=== PATIENT | female | born 1985 ===

== ENCOUNTER 2017-01-30 14:02 | Inpatient (IN) | payer OTHER, MEDICAID ==
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
[2017-01-30 14:31] VITALS: BMI 28.3
[2017-01-30 16:16] LABS: ADD MANUAL DIFF? NO
[2017-01-30 16:29] LABS: ALB/GLOB RATIO 1.3 (1.1-1.8); ALKALINE PHOSPHATASE 56 U/L (38-133); ALT/SGPT 26 U/L (7-56); AST/SGOT 37 U/L (15-39); BILIRUBIN,TOTAL 2.6 mg/dL (0.2-1.3); BLOOD UREA NITROGEN 13 mg/dL (7-21); CALCIUM 10.1 mg/dL (8.4-10.5); CARBON DIOXIDE 16 mmol/L (21-33); CHLORIDE 107 mmol/L (98-107); GFR AFRICAN-AMERICAN > 60; GLUCOSE,RANDOM 84 mg/dL (70-110); POTASSIUM 3.3 mmol/L (3.6-5.0); SODIUM 141 mmol/L (132-148); TOTAL PROTEIN 8.3 g/dL (5.8-8.3)
[2017-01-30 16:34] LABS: BASO # 0.09 K/mm3 (0.0-2.0); BASO % 0.7 % (0.0-3.0); EOS # 0.1 (0.0-0.7); EOS % 0.4 % (1.5-5.0); GRAN % 71.9 % (50.0-68.0); LYMPH # 2.4 (1.2-3.4); LYMPH % 19.2 % (22.0-35.0); MEAN CELL VOLUME 88.8 fL (80.0-105.0); MEAN CORPUSCULAR HEMOGLOBIN 32.3 pg (25.0-35.0); MEAN CORPUSCULAR HGB CONC 36.4 g/dl (31.0-37.0); MEAN PLATELET VOLUME 8.4 fl (7.0-11.0); MONO % 7.8 % (1.0-6.0); PLATELET COUNT 338 10^3/uL (120.0-450.0); RED CELL DISTRIBUTION WIDTH 13.1 % (11.5-14.5); WHITE BLOOD COUNT 12.5 10^3/ul (4.5-11.0)
[2017-01-30] MEDS ORDERED: Potassium Chloride 20 mEq ER Tab PO STA (16:41)
[2017-01-30 17:51] VITALS: O2SAT 98
[2017-01-30] MEDS ORDERED: Magnesium Hydroxide Susp 30 ml UD PO PRN (20:31)
[2017-01-30] MEDS ORDERED: Alum-Mag Hydrox-Simethicone Susp (30 mL) PO PRN (20:31)
[2017-01-30] MEDS: Divalproex 500 mg DR(BID formulation) PO SCH (21:28)
[2017-01-31] MEDS: Divalproex 500 mg DR(BID formulation) PO SCH ×2 (09:48→21:23)
[2017-01-31 10:04] LABS: HEMATOCRIT 39.6 % (36.0-48.0); MEAN CELL VOLUME 90.6 fL (80.0-105.0); MEAN CORPUSCULAR HEMOGLOBIN 31.8 pg (25.0-35.0); MEAN CORPUSCULAR HGB CONC 35.1 g/dl (31.0-37.0); MEAN PLATELET VOLUME 8.9 fl (7.0-11.0); RED CELL DISTRIBUTION WIDTH 13.4 % (11.5-14.5); WHITE BLOOD COUNT 9.4 10^3/ul (4.5-11.0)
[2017-01-31 10:15] LABS: BLOOD UREA NITROGEN 17 mg/dL (7-21); CALCIUM 9.8 mg/dL (8.4-10.5); CARBON DIOXIDE 22 mmol/L (21-33); CHLORIDE 103 mmol/L (98-107); GFR AFRICAN-AMERICAN > 60; GLUCOSE,RANDOM 65 mg/dL (70-110); POTASSIUM 3.9 mmol/L (3.6-5.0); SODIUM 138 mmol/L (132-148)
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
[2017-01-31 15:06] LABS: URINE BILIRUBIN NEGATIVE (NEGATIVE); URINE BLOOD TRACE-LYSED (NEGATIVE); URINE GLUCOSE (UA) NEGATIVE (NEGATIVE); URINE KETONE 15 mg/dL (NEGATIVE); URINE LEUKOCYTE ESTERASE NEGATIVE Leu/uL (NEGATIVE); URINE PROTEIN NEGATIVE mg/dL (<30 mg/dL); URINE UROBILINOGEN 0.2 E.U./dL (<1 E.U./dL)
[2017-01-31 15:13] LABS: URINE APPEARANCE CLEAR (CLEAR); URINE COLOR YELLOW (YELLOW)
[2017-01-31 15:15] LABS: URINE BACTERIA FEW (NEG); URINE EPITHELIAL CELLS MANY /hpf (0-5); URINE RBC 0 - 2 /hpf (0-2); URINE WBC 0 - 2 /hpf (0-6)
--- NOTE | 2017-01-31 16:02 | CARD ---
APPROVED REPORT EKG Measurement Heart [id number] <Conclusion> Normal sinus rhythm Normal ECG
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
[2017-02-01] MEDS: Divalproex 500 mg DR(BID formulation) PO SCH (09:36)
[2017-02-01] MEDS ORDERED: Valproic Acid 250 mg/5 ml Oral Syrup (60 ml) PO SCH (10:00)
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
[2017-02-01 15:42] LABS: URINE BILIRUBIN NEGATIVE (NEGATIVE); URINE BLOOD TRACE-LYSED (NEGATIVE); URINE GLUCOSE (UA) NEGATIVE (NEGATIVE); URINE KETONE 15 mg/dL (NEGATIVE); URINE LEUKOCYTE ESTERASE NEGATIVE Leu/uL (NEGATIVE); URINE PROTEIN NEGATIVE mg/dL (<30 mg/dL); URINE UROBILINOGEN 0.2 E.U./dL (<1 E.U./dL)
[2017-02-01 15:46] LABS: URINE APPEARANCE CLEAR (CLEAR); URINE COLOR YELLOW (YELLOW)
[2017-02-01 16:12] LABS: URINE BACTERIA FEW (NEG); URINE EPITHELIAL CELLS MANY /hpf (0-5)
[2017-02-01] MEDS: Divalproex 500 mg ER (ONCE DAILY formulation) PO SCH (21:29)
[2017-02-02 10:05] VITALS: RESP 20
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
[2017-02-02] MEDS: Divalproex 500 mg ER (ONCE DAILY formulation) PO SCH (22:05)
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
[2017-02-03] MEDS: Divalproex 500 mg ER (ONCE DAILY formulation) PO SCH (21:23)
--- NOTE | 2017-02-04 15:33 | CP.PCM.PN ---
<Earle Osorio - Last Filed: 02/04/17 15:45> Subjective - Date & Time of Evaluation Date of Evaluation: 02/04/17 Time of Evaluation: 15:28 - Subjective Subjective: Pt seen and examined at bedside. Pt states she has been experiencing pain in her left thumb and her right heel for the past week. Pt denies trauma to both areas. She states her thumb cyst has become larger over the past several days and has not had any erythema or drainage. Pt has been taking tylenol for pain and it has not helped. Pt states heel pain started 1 week ago and is made worse by placing pressure on it or walking. Pt reports not stepping on anything or having any puncture type wounds. Denies CP, SOB, N/V/D, fever, chills. Objective - Vital Signs/Intake and Output Vital Signs (last 24 hours): Temp Pulse Resp BP Pulse Ox 97.7 F 70 20 128/65 98 02/03/17 06:00 02/03/17 16:00 02/03/17 06:00 02/03/17 16:00 01/30/17 16:03 - Medications Medications: Current Medications Al Hydrox/Mg Hydrox/Simethicone (Maalox Plus 30 Ml) 30 ml PO DAILY PRN PRN Reason: Upset Stomach Benztropine Mesylate (Cogentin) 1 mg PO HS CARMEN Last Admin: 02/03/17 21:23 Dose: 1 mg Divalproex Sodium (Depakote Er(Once Daily)) 1,000 mg PO HS CARMEN PRN Reason: Protocol Last Admin: 02/03/17 21:23 Dose: 1,000 mg Ibuprofen (Motrin Tab) 400 mg PO Q6H PRN PRN Reason: Pain, moderate (4-7) Magnesium Hydroxide (Milk Of Magnesia) 30 ml PO DAILY PRN PRN Reason: Constipation Risperidone (Risperdal Oral Soln) 1 mg PO DAILY CARMEN PRN Reason: Protocol Last Admin: 02/04/17 12:12 Dose: 1 mg Risperidone (Risperdal Oral Soln) 2 mg PO HS CARMEN PRN Reason: Protocol Last Admin: 02/03/17 21:33 Dose: 2 mg Zaleplon (Sonata) 5 mg PO HS PRN PRN Reason: Insomnia Last Admin: 02/03/17 21:23 Dose: 5 mg - Labs Labs: 01/31/17 09:55 01/31/17 09:55 - Constitutional Appears: Well, No Acute Distress - Head Exam Head Exam: ATRAUMATIC, NORMAL INSPECTION, NORMOCEPHALIC - ENT Exam ENT Exam: Mucous Membranes Moist, Normal Exam - Neck Exam Neck Exam: Normal Inspection. absent: Lymphadenopathy - Respiratory Exam Respiratory Exam: Clear to Ausculation Bilateral, NORMAL BREATHING PATTERN. absent: Rhonchi, Wheezes - Cardiovascular Exam Cardiovascular Exam: RRR, +S1 - GI/Abdominal Exam GI & Abdominal Exam: Soft. absent: Tenderness - Extremities Exam Extremities Exam: absent: Calf Tenderness, Pedal Edema Additional comments: Left thumb cyst at bottom of nail. No erythema or drainage. Pain on palpation. Right heel bottom with pain on palpation of callus. - Neurological Exam Neurological Exam: Alert, Awake, Oriented x3 - Psychiatric Exam Psychiatric exam: Normal Affect - Skin Skin Exam: Intact, Warm Assessment and Plan - Assessment and Plan (Free Text) Plan: 31 y/o F with PMH of anxiety, bipolar disorder, depression admitted to psychiatry unit for bipolar disorder and agitation. Pt seen for pain in left thumb and right heel. Will change tylenol to motrin and add hydrocortisone cream for heel. Will reevaluate patient in upcoming days. Continue current plan as per psychiatry. Right heel pain - Hydrocortisone cream added Left thumb cyst - Motrin for pain - Will consider drainage if pain persists for prolonged period of time. Anxiety, bipolar disorder, and depression -Management per psychiatry Seen, reviewed, and discussed with attending. Jo, PGY-1 <Satinder Murdock - Last Filed: 02/04/17 16:24> Objective - Vital Signs/Intake and Output Vital Signs (last 24 hours): Temp Pulse Resp BP Pulse Ox 97.7 F 70 20 128/65 98 02/03/17 06:00 02/03/17 16:00 02/03/17 06:00 02/03/17 16:00 01/30/17 16:03 - Medications Medications: Current Medications Al Hydrox/Mg Hydrox/Simethicone (Maalox Plus 30 Ml) 30 ml PO DAILY PRN PRN Reason: Upset Stomach Benztropine Mesylate (Cogentin) 1 mg PO HS [facility] Last Admin: 02/03/17 21:23 Dose: 1 mg Divalproex Sodium (Depakote Er(Once Daily)) 1,000 mg PO HS CARMEN PRN Reason: Protocol Last Admin: 02/03/17 21:23 Dose: 1,000 mg Ibuprofen (Motrin Tab) 400 mg PO Q6H PRN PRN Reason: Pain, moderate (4-7) Magnesium Hydroxide (Milk Of Magnesia) 30 ml PO DAILY PRN PRN Reason: Constipation Risperidone (Risperdal Oral Soln) 1 mg PO DAILY CARMEN PRN Reason: Protocol Last Admin: 02/04/17 12:12 Dose: 1 mg Risperidone (Risperdal Oral Soln) 2 mg PO HS CARMEN PRN Reason: Protocol Last Admin: 02/03/17 21:33 Dose: 2 mg Zaleplon (Sonata) 5 mg PO HS PRN PRN Reason: Insomnia Last Admin: 02/03/17 21:23 Dose: 5 mg - Labs Labs: 01/31/17 09:55 01/31/17 09:55 Attending/Attestation - Attestation I have personally seen and examined this patient.: Yes I have fully participated in the care of the patient.: Yes I have reviewed all pertinent clinical information, including history, physical exam and plan: Yes Notes (Text): 02/04/17 16:17 MEDICAL FOLLOW UP 31 year old female with past medical history of anxiety, bipolar and depression currently admitted in the psychiatric unit under the care of Dr. Santos. Medical follow up was requested for complaint of left thumb and right heel pain x 1 week. On examination patient has cyst of left thumb below the nail bed. No erythema or discharge. She is able to flex/extend thumb joint without difficulty. Can add anti-inflammatory medication (motrin) for pain. If symptoms worsen or begins to look infected can consider for drainage of cyst. She also has right heel tenderness with dry soles of feet. Will order heel xray to rule out fracture and add hydrocortisone cream. Satinder Murdock MD Hospitalist.
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
[2017-02-04] MEDS: Divalproex 500 mg ER (ONCE DAILY formulation) PO SCH (21:19)
[2017-02-05 07:36] VITALS: BP 105/54; PULSE 57; TEMP 98.2
[2017-02-05] MEDS ORDERED: Hydrocerin(120 gm) TOP SCH (07:45)
--- NOTE | 2017-02-05 10:30 | RAD ---
PROCEDURE: Radiographs of the right calcaneus/hindfoot. HISTORY: Right heel pain COMPARISON: None available. TECHNIQUE: Frontal and lateral radiographs of the calcaneus. FINDINGS: Bone alignment and mineralization are normal. There is no acute fracture or bone destruction. There is no evidence of calcaneal spur. IMPRESSION: Normal examination.
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
== END 2017-02-05 17:25 | disposition home or self-care (01) | DRG 430 ==
LOC: ED 14:02 → ERH 17:08 → PSYC 18:29
PROVIDERS: ADMIT Psychiatry & Neurology Psychiatry; ATTEND Psychiatry & Neurology Psychiatry
PROC: GZ3ZZZZ Medication Management (ICD-10-PCS; principal; 2017-01-30)
DX: F31.64 Bipolar disorder, current episode mixed, severe, with psychotic features (principal); F12.10 Cannabis abuse, uncomplicated; F41.9 Anxiety disorder, unspecified; M79.671 Pain in right foot; L72.8 Other follicular cysts of the skin and subcutaneous tissue; Z87.440 Personal history of urinary (tract) infections

== ENCOUNTER 2017-03-14 11:56 | Emergency (ER) | payer OTHER, MEDICAID ==
[2017-03-14 12:01] VITALS: BMI 27.4
--- NOTE | 2017-03-14 12:01 | ED PDOC ---
Arrival/HPI - General Historian: Patient - General Time Seen by Provider: 03/14/17 11:57 - History of Present Illness Narrative History of Present Illness (Text): 03/14/17 11:58 31 y/o female, psychiatric history including anxiety/bipolar disorder, nkda, bib relatives due to the psychotic episode with anxiety started about 1 hour ago. Pt. was eating the sandwich, started to screaming and anxious, doesn't want to reason, no nausea or vomiting, no fever or chills, no headache or night sweat, no palpitation, no rash, no other medical or psychiatric complaints. Pt. is here grabbing people's shirt, kicking the staffs, doesn't wanna reason. (Jourdan Lopez) Past Medical History - Provider Review Nursing Documentation Reviewed: Yes - Infectious Disease Hx of Infectious Diseases: None - Tetanus Immunization Tetanus Immunization: Unknown - Cardiac Hx Cardiac Disorders: No - Pulmonary Hx Respiratory Disorders: No - Neurological Hx Neurological Disorder: No - HEENT Hx HEENT Disorder: No - Renal Hx Renal Disorder: No - Endocrine/Metabolic Hx Endocrine Disorders: No - Hematological/Oncological Hx Blood Disorders: No - Integumentary Hx Dermatological Disorder: No - Musculoskeletal/Rheumatological Hx Musculoskeletal Disorders: No - Gastrointestinal Hx Gastrointestinal Disorders: Yes (unknown) - Genitourinary/Gynecological Hx Genitourinary Disorders: No - Psychiatric Hx Anxiety: Yes Hx Bipolar Disorder: Yes Hx Depression: Yes Hx Substance Use: Yes (occacionally) - Anesthesia Hx Anesthesia: No Family/Social History - Physician Review Nursing Documentation Reviewed: Yes Family/Social History: Unknown Family HX Smoking Status: Current Some Days Smoker Hx Alcohol Use: No Hx Substance Use: Yes (occacionally) Substance used: MJ, possibly others Allergies/Home Meds Allergies/Adverse Reactions: Allergies No Known Allergies Allergy (Verified 03/14/17 12:16) Review of Systems - Review of Systems Systems not reviewed;Unavailable: Uncooperative Constitutional: absent: Fatigue, Fevers Eyes: absent: Vision Changes ENT: absent: Hearing Changes Respiratory: absent: SOB, Cough Cardiovascular: absent: Chest Pain, Palpitations Gastrointestinal: absent: Abdominal Pain, Nausea, Vomiting Genitourinary Female: absent: Dysuria, Frequency Neurological: absent: Headache, Dizziness, Focal Weakness, Gait Changes Psychiatric: Anxiety. absent: Depression, Suicidal Ideation Physical Exam Pain Distress: None Mental Status: Positive for: Alert and Oriented X 3 - Systems Exam Head: Present: Atraumatic, Normocephalic Pupils: Present: PERRL Extroacular Muscles: Present: EOMI Conjunctiva: Present: Normal Mouth: Present: Moist Mucous Membranes Neck: Present: Normal Range of Motion Respiratory/Chest: Present: Clear to Auscultation, Good Air Exchange. No: Respiratory Distress, Accessory Muscle Use, Wheezes, Retracting, Rhonchi, Tachypneic Cardiovascular: Present: Regular Rate and Rhythm, Normal S1, S2. No: Murmurs Abdomen: Present: Normal Bowel Sounds. No: Tenderness, Distention, Peritoneal Signs Back: Present: Normal Inspection Upper Extremity: Present: Normal Inspection. No: Cyanosis, Edema Lower Extremity: Present: Normal Inspection. No: Edema Neurological: Present: GCS=15, Motor Func Grossly Intact, Gait Normal, Memory Normal Skin: Present: Warm, Dry, Normal Color. No: Rashes Psychiatric: Present: Alert, Oriented x 3, Normal Insight, Normal Concentration , Anxious, Agitated Vital Signs Temp Pulse Resp BP Pulse Ox 03/14/17 16:22 97 H 18 111/76 99 03/14/17 14:38 73 16 108/64 99 03/14/17 12:26 97.5 F L 100 H 18 158/77 H 97 Medical Decision Making - Lab Interpretations I have reviewed the lab results: Yes Interpretation: Abnormal lab values (wbc 12, UDS +cannabinoid) - RAD Interpretation Coding Consultant: Radiologist - EKG Interpretation Interpreted by ED Physician: Yes Type: 12 lead EKG Comparison: Com.w/previous EKG ED Course and Treatment: I was available for consultation during PA evaluation. The chart was reviewed by me, and I agree with disposition. The documented history was done by the physician cutter machine tender. The documented physical exam was done by the physician cutter machine tender. The documented procedures were done by the physician cutter machine tender. ( Kadeem Garibay) 03/14/17 12:01 -ativan 2mg IM -labs/ua/uds -ekg/chest xray -obser 03/14/17 12:04 -Pt. is agitated and violent, attacking and kicking staffs, restraint order added as well. 03/14/17 13:38 -Pt. is calm now, will discontinue the restraint since she is control with ativan. 03/14/17 15:06 -EKG: NSR @ 80 BPM, no ST elevation or depression, no T wave inversion, compared with previous ekg. -Urine hcg negative -Labs are non-significant except wbc 12 which is stress induced as she has no fever/chills. -UA show no UTI -UDS show +cannabinoid -Vitally stable -Pt. is medically clear and stable for the PES evaluation, PES paged and will come to evaluate the patient. 03/14/17 17:34 -Pt. evaluated by the PES Tracy which she spoke to the psychiatrist chasidy which the patient doesn't need admission, suggest to discharge home. -Discharge home with education on follow up with your own pmd and psychiatrist within 2 days, return to the ER for any new or worsening signs or symptoms. ( Jourdan Lopez) - Lab Interpretations Lab Results: 03/14/17 13:30 03/14/17 13:30 Lab Results 03/14/17 14:30: Urine Color Yellow, Urine Appearance Clear, Urine pH 6.0, Ur Specific [place] >= 1.030, Urine Protein 30 H, Urine Glucose (UA) Negative, Urine Ketones 15 H, Urine Blood Trace-intact H, Urine Nitrate Negative, Urine Bilirubin Negative, Urine Urobilinogen 0.2, Ur Leukocyte Esterase Negative, Urine RBC 0 - 2, Urine WBC 0 - 2, Ur Epithelial Cells 0 - 2, Urine Bacteria Small, Urine Opiates Screen Negative, Urine Methadone Screen Negative, Ur Barbiturates Screen Negative, Ur Phencyclidine Scrn Negative, Ur Amphetamines Screen Negative, U Benzodiazepines Scrn Negative, U Oth Cocaine Metabols Negative, U Cannabinoids Screen Positive H 03/14/17 13:30: WBC 12.2 H D, RBC 4.70, Hgb 15.0, Hct 42.3, MCV 90.0, MCH 31.9, MCHC 35.5, RDW 12.8, Plt Count 332, MPV 8.4, Gran % 71.0 H, Lymph % (Auto) 17.5 L, [place] % (Auto) 9.5 H, Eos % (Auto) 1.2 L, Baso % (Auto) 0.8, Gran # 8.61 H, Lymph # 2.1, [place] # 1.2 H, Eos # 0.2, Baso # 0.10, Sodium 142, Potassium 4.3, Chloride 103, Carbon Dioxide 23, Anion Gap 20, BUN 10, Creatinine 0.7, Est GFR ( Amer) > 60, Est GFR (Non-Af Amer) > 60, Random Glucose 95, Calcium 10.7 H, Total Bilirubin 1.6 H, AST 30, ALT 36, Alkaline Phosphatase 66, Total Protein 9.1 H, Albumin 5.1 H, Globulin 4.0, Albumin/Globulin Ratio 1.3, Salicylates < 1 L, Acetaminophen < 10.0 L, Alcohol, Quantitative < 10 - RAD Interpretation Radiology Orders: 03/14/17 12:01 CHEST PORTABLE [RAD] Stat no active disease (Jourdan Lopez) - EKG Interpretation EKG Interpretation (Text): 03/14/17 13:55 NSR @ 80 BPM, no ST elevation or depression, no T wave inversion, compared with previous ekg. (Jourdan Lopez) - Medication Orders Current Medication Orders: Discontinued Medications Lorazepam (Ativan) 2 mg IM ONCE ONE PRN Reason: Protocol Stop: 03/14/17 12:02 Last Admin: 03/14/17 12:05 Dose: 2 MG Behavioural Document 03/14/17 12:05 [facility] (Rec: 03/14/17 12:30 [facility] [id number]) Maintenance Maintenance Dose No Nonmedicinal Nonmedicinal Interventions See nurse's notes Behavior Behavior for Medication: Anxiety Biting/Hitting/Throwing/ Kicking Continuous crying/screaming/ yelling Dangers to self/others IM Administration Charges Document 03/14/17 12:05 [facility] (Rec: 03/14/17 12:30 [facility] [id number]) Injection Site MAR Injection Site Left Arm Charges for Administration # of IM Administrations 1 - PA / [employer] / Resident Statement MD/DO has reviewed & agrees with the documentation as recorded. Disposition/Present on Arrival - Present on Arrival Any Indicators Present on Arrival: No History of DVT/PE: No History of Uncontrolled Diabetes: No Urinary Catheter: No History of Decub. Ulcer: No History Surgical Site Infection Following: None - Disposition Have Diagnosis and Disposition been Completed?: Yes Disposition Time: 17:35 Patient Plan: Discharge - Disposition Diagnosis: Anxiety, Psychiatric care Disposition: HOME/ ROUTINE Patient Problems: Current Active Problems Problem Status Diagnosed Anxiety Acute Psychiatric care Acute Condition: IMPROVED Additional Instructions: Discharge home with education on follow up with your own pmd and psychiatrist within 2 days, return to the ER for any new or worsening signs or symptoms. [facility]errals[facility] - Follow up with primary Forms: WORK NOTE
[2017-03-14 12:26] VITALS: TEMP 97.5
[2017-03-14 13:38] LABS: ADD MANUAL DIFF? NO
[2017-03-14 13:40] LABS: BASO % 0.8 % (0.0-3.0); EOS # 0.2 (0.0-0.7); EOS % 1.2 % (1.5-5.0); GRAN # 8.61 (1.4-6.5); HEMATOCRIT 42.3 % (36.0-48.0); LYMPH # 2.1 (1.2-3.4); LYMPH % 17.5 % (22.0-35.0); MEAN CORPUSCULAR HEMOGLOBIN 31.9 pg (25.0-35.0); MEAN CORPUSCULAR HGB CONC 35.5 g/dl (31.0-37.0); MEAN PLATELET VOLUME 8.4 fl (7.0-11.0); MONO # 1.2 (0.1-0.6); MONO % 9.5 % (1.0-6.0); PLATELET COUNT 332 10^3/uL (120.0-450.0); RED CELL DISTRIBUTION WIDTH 12.8 % (11.5-14.5); WHITE BLOOD COUNT 12.2 10^3/ul (4.5-11.0)
[2017-03-14 13:51] LABS: ALB/GLOB RATIO 1.3 (1.1-1.8); ALKALINE PHOSPHATASE 66 U/L (38-133); ALT/SGPT 36 U/L (7-56); AST/SGOT 30 U/L (15-39); BILIRUBIN,TOTAL 1.6 mg/dL (0.2-1.3); BLOOD UREA NITROGEN 10 mg/dL (7-21); CALCIUM 10.7 mg/dL (8.4-10.5); CARBON DIOXIDE 23 mmol/L (21-33); CHLORIDE 103 mmol/L (95-110); GFR AFRICAN-AMERICAN > 60; GLUCOSE,RANDOM 95 mg/dL (70-110); POTASSIUM 4.3 mmol/L (3.6-5.0); SODIUM 142 mmol/L (132-148); TOTAL PROTEIN 9.1 g/dL (5.8-8.3)
[2017-03-14 14:39] VITALS: O2SAT 99
[2017-03-14 15:00] LABS: URINE BILIRUBIN NEGATIVE (NEGATIVE); URINE BLOOD TRACE-INTACT (NEGATIVE); URINE GLUCOSE (UA) NEGATIVE (NEGATIVE); URINE KETONE 15 mg/dL (NEGATIVE); URINE LEUKOCYTE ESTERASE NEGATIVE Leu/uL (NEGATIVE); URINE PROTEIN 30 mg/dL (<30 mg/dL); URINE UROBILINOGEN 0.2 E.U./dL (<1 E.U./dL)
[2017-03-14 15:05] LABS: URINE APPEARANCE CLEAR (CLEAR); URINE COLOR YELLOW (YELLOW)
[2017-03-14 15:07] LABS: URINE BACTERIA SMALL (NEG); URINE EPITHELIAL CELLS 0 - 2 /hpf (0-5); URINE RBC 0 - 2 /hpf (0-2); URINE WBC 0 - 2 /hpf (0-6)
--- NOTE | 2017-03-14 16:06 | RAD ---
PROCEDURE: CHEST RADIOGRAPH, 1 VIEW HISTORY: medical clearance COMPARISON: None available. FINDINGS: LUNGS: Clear. PLEURA: No pneumothorax or pleural fluid seen. CARDIOVASCULAR: Normal. OSSEOUS STRUCTURES: No significant abnormalities. VISUALIZED UPPER ABDOMEN: Normal. OTHER FINDINGS: None. IMPRESSION: No active disease.
[2017-03-14 16:23] VITALS: BP 111/76; PULSE 97; RESP 18
--- NOTE | 2017-03-14 23:34 | CARD ---
APPROVED REPORT EKG Measurement Heart [id number] 124P-1 [id number] <Conclusion> Normal sinus rhythm Normal ECG
== END 2017-03-14 17:43 | disposition home or self-care (01) ==
LOC: ED 11:56
DX: F41.9 Anxiety disorder, unspecified (principal); F31.9 Bipolar disorder, unspecified
CPT/HCPCS: 71010; 80053; 80320; 80324; 80329; 80345; 80346; 80349; 80353; 80358; 80361; 81001; 83992; 85025; 85027; 90791; 93005; 96372; 99285; J2060